=== PATIENT | female | born 1980 | race Hispanic/Latino ===

== ENCOUNTER 2017-01-05 10:19 | Emergency (ER) ==
[2017-01-05 10:28] VITALS: BP 118/75
[2017-01-05 10:39] LABS: URINE CULTURE PL NEEDED? NO; URINE SOURCE CLEAN CATCH
[2017-01-05 10:49] LABS: MANUAL DIFF NEEDED? NO
[2017-01-05 10:50] LABS: BASO% 0.1 % (0.0-0.8); EOS# 0.09 X1000 (0.0-0.7); EOS% 0.8 % (0.0-10.0); HEMATOCRIT 39.2 % (37.0-47.0); HEMOGLOBIN 13.3 g/dL (12.0-16.0); IMM GRAN# 0.02 X1000 (0.0-0.04); IMM GRAN% 0.2 % (0.0-0.5); LYMPH# 2.03 X1000 (1.2-3.4); LYMPH% 18.7 % (20.5-51.1); MCH 30.6 PG (27-31); MCHC 33.9 g/dL (33-37); MCV 90.3 FL (81-99); MONO# 0.72 X1000 (0.11-0.59); MONO% 6.6 % (1.7-9.3); MPV 9.9 FL (7.4-10.4); NEUT% 73.6 % (42.2-75.2); PLT 295 X1000 (130-400); RBC 4.34 XMIL (4.2-5.4)
[2017-01-05 10:52] LABS: BILIRUBIN URINE NEGATIVE (NEGATIVE); BLOOD URINE NEGATIVE (NEGATIVE); CLARITY CLEAR (CLEAR); COLOR YELLOW; GLUCOSE URINE NEGATIVE (NEGATIVE); LEUKOCYTES URINE 1+ (NEGATIVE); NITRITE URINE NEGATIVE (NEGATIVE); PH URINE 6.5; PROTEIN URINE TRACE mg/dL (NEGATIVE); SP GRAVITY URINE 1.015; UROBILINOGEN URINE NORMAL
[2017-01-05 10:53] LABS: URINE EPITHELIAL CELLS >10 /HPF (<10); URINE WBC <10 /HPF (<10)
[2017-01-05 11:06] LABS: AGAP 12; ALKALINE PHOSPHATASE 89 U/L (32-104); AMYLASE 44 U/L (20-200); BUN 11 mg/dL (8-22); CALCIUM 8.9 mg/dL (8.8-10.2); CHLORIDE 106 mmol/L (98-107); COSMO 277; GOT 20 U/L (10-30); GPT 17 U/L (10-36); LIPASE 19 U/L (13-60); POTASSIUM 3.5 mmol/L (3.5-5.1); SODIUM 139 mmol/L (136-145); TCO2 21 mmol/L (25-35); TOTAL PROTEIN 6.9 g/dL (6.3-8.3)
--- NOTE | 2017-01-05 11:14 | PROVIDER DOCUMENTATION ---
HPI-Abdominal Pain/GI Problem - General Chief Complaint: Epigastric Pain Stated Complaint: BACK PAIN Time Seen by Provider: 01/05/17 10:30 Source: patient Allergies/Adverse Reactions: Patient Allergies Allergy/AdvReac Type Severity Reaction Status Date / Time No Known Allergies Allergy Verified 12/31/12 15:15 Home Medications: Home Medication List Medication Instructions Recorded Confirmed Last Taken Type No Home Medications 01/05/17 01/05/17 Unknown History - History of Present Illness-ABD Nature of Presenting Problems: pt is a 36 y/o F that presents to the ER with RUQ/epigastric pain that radiates to her back. She has n/v but no diarrhea or fever. Denies possible . Denies dysuria or hematuria. Abdominal Pain Onset Location: reports: RUQ, epigastric Pain Radiation: reports: back Quality of Pain: reports: aching Severity in ED: reports: moderate Onset/Duration: reports: gradual, this morning Timing: reports: still present, constant Activities at Onset: reports: none Exposure to sick contacts?: No Modifying Factors: worse with: palpation Associated Symptoms: reports: back/neck pain, nausea, vomiting. denies: chest pain, diarrhea, dizziness, fever/chills, genitourinary problems, headaches, heartburn, shortness of breath Similar Symptoms Previously?: No Recently seen or treated by another doctor?: No Review of Systems - Adult - REVIEW OF SYSTEMS - ADULT Constitutional: denies: chills, fever Eyes: reports: no symptoms reported Ears, Nose, Mouth & Throat: reports: no symptoms reported Cardiovascular: denies: chest pain, palpitations, syncope Respiratory: denies: cough, shortness of breath, wheezing Gastrointestinal: reports: abdominal pain, nausea, vomiting. denies: hematemesis, constipation, diarrhea, rectal bleeding Genitourinary: denies: dysuria, frequency, hematuria Musculoskeletal: reports: back pain. denies: joint pain, neck pain Integumentary: reports: no symptoms reported Neurological: reports: no symptoms reported Psychiatric: reports: no symptoms reported Endocrine: reports: no symptoms reported Hematologic/Lymphatic: reports: no symptoms reported Allergic/Immunologic: reports: no symptoms reported All Other Systems: Reviewed and Negative Past History - Adult - PAST MEDICAL HISTORY-ADULT Review of Records: reports: Old Records Reviewed, Nursing Assessment Review, Medications Reviewed - PRIOR SURGERIES/PROCEDURES Surgical/Procedure History: reports: - IMMUNIZATION STATUS Childhood Immunizations: See Nurse Assessment Flu Vaccine: See Nurse Assessment - FAMILY HISTORY Family History: reviewed, not pertinent - SOCIAL HISTORY Smoking: non-smoker Living Situation: family Physical Exam-General - PHYSICAL EXAM-ADULT Initial Vital Signs Reviewed: Yes - CONSTITUTIONAL General Appearance: alert, no apparent distress - EYES Eyes: PERRL/EOMI, pink conjunctivae - HEAD, EARS, NOSE, MOUTH & THROAT HENMT: normocephalic/atraumatic, moist mucous membranes, normal ENT inspection - NECK Neck: non-tender, full range of motion, normal inspection - RESPIRATORY Respiratory: lungs clear, normal breath sounds, no respiratory distress, no accessory muscle use - CARDIOVASCULAR Cardiovascular: regular rate, rhythm, no edema, no murmur - GASTROINTESTINAL (ABDOMEN) Abdominal Exam: normal bowel sounds, soft, no organomegaly, no pulsatile mass, tenderness (RUQ,EPigastric). negative: hepatomegaly, spleenomegaly, Seay's sign - MUSCULOSKELETAL Back Exam: normal inspection, no vertebral tenderness Extremity: normal range of motion, normal inspection, no pedal edema - SKIN Integumentary: normal color, warm/dry - NEUROLOGIC Neurologic: grossly normal, no motor/sensory deficits - PSYCHIATRIC Psych/Mental Status: normal mood/affect, normal thought content, normal thought process, oriented x 3 Progress - PLAN OF CARE/RESULTS Progress/Plan/Lab Results: plan of care-labs, u/s RUQ Vital Signs Temp Pulse Resp BP Pulse Ox 01/05/17 10:23 98 F 75 18 118/75 99 No Known Allergies Allergy (Verified 12/31/12 15:15) No Home Medications 01/05/17 Laboratory 01/05/17 01/05/17 01/05/17 10:44 10:44 10:38 WBC 10.83 H RBC 4.34 Hgb 13.3 Hct 39.2 MCV 90.3 MCH 30.6 MCHC 33.9 RDW Std Deviation 12.6 Plt Count 295 MPV 9.9 Immature Gran % (Auto) 0.2 Neut % (Auto) 73.6 Lymph % (Auto) 18.7 L [place] % (Auto) 6.6 Eos % (Auto) 0.8 Baso % (Auto) 0.1 Immature Gran # (Auto) 0.02 Neut # (Auto) 7.96 H Lymph # (Auto) 2.03 [place] # (Auto) 0.72 H Eos # (Auto) 0.09 Baso # (Auto) 0.01 Sodium 139 Potassium 3.5 Chloride 106 Carbon Dioxide 21 L Anion Gap 12 BUN 11 Creatinine 0.5 Estimated GFR/1.73 m2 > 60 BUN/Creatinine Ratio 22 Glucose 97 Calculated Osmolality 277 Calcium 8.9 Total Bilirubin 0.60 AST 20 ALT 17 Alkaline Phosphatase 89 Total Protein 6.9 Albumin 4.0 Globulin 3.0 Albumin/Globulin Ratio 1.0 Amylase 44 Lipase 19 Urine Source CLEAN CATCH Urine Color YELLOW Urine Clarity CLEAR Urine pH 6.5 Ur Specific [place] 1.015 Urine Protein TRACE A Urine Ketones TRACE Urine Blood NEGATIVE Urine Nitrite NEGATIVE Urine Bilirubin NEGATIVE Urine Urobilinogen NORMAL Urine Microscopic RBC Not Reportable Urine WBC 1+ A Urine Microscopic WBC <10 Ur Epithelial Cells >10 A Urine Glucose NEGATIVE Urine Test 01/05/17 10:38 WBC RBC Hgb Hct MCV MCH MCHC RDW Std Deviation Plt Count MPV Immature Gran % (Auto) Neut % (Auto) Lymph % (Auto) [place] % (Auto) Eos % (Auto) Baso % (Auto) Immature Gran # (Auto) Neut # (Auto) Lymph # (Auto) [place] # (Auto) Eos # (Auto) Baso # (Auto) Sodium Potassium Chloride Carbon Dioxide Anion Gap BUN Creatinine Estimated GFR/1.73 m2 BUN/Creatinine Ratio Glucose Calculated Osmolality Calcium Total Bilirubin AST ALT Alkaline Phosphatase Total Protein Albumin Globulin Albumin/Globulin Ratio Amylase Lipase Urine Source Urine Color Urine Clarity Urine pH Ur Specific [place] Urine Protein Urine Ketones Urine Blood Urine Nitrite Urine Bilirubin Urine Urobilinogen Urine Microscopic RBC Urine WBC Urine Microscopic WBC Ur Epithelial Cells Urine Glucose Urine Test NEGATIVE Orders Category Date Time Status US GB < RUQ (LIMITED) [US] Stat Exams 01/05/17 11:15 Taken AMYLASE [CHEM] Stat Lab 01/05/17 10:44 Completed CBC WITH DIFF [HEME] Stat Lab 01/05/17 10:44 Completed COMPREHENSIVE METABOLIC PANEL [CHEM] Stat Lab 01/05/17 10:44 Completed LIPASE [CHEM] Stat Lab 01/05/17 10:44 Completed TEST-URINE [PREG] Stat Lab 01/05/17 10:[address] W/POSS RFLX CULT [URINALYSIS] Stat Lab 01/05/17 10:38 Completed - ULTRASOUND (By Radiology) 1 US Study: Gallbladder Impression: Abnormal US Results: multiple small gallstones, slight thickened gallbladder wall, nml CBD - CONSULTS/PCP/HOSPITALIST Notification #1 *Consult/PCP/Hospitalist*: Time Discussed: 12:45 Reason/Comments: Cholelithasis Consult Disposition: F/U in office Departure - Departure Time of Disposition Order: 12:46 DIAGNOSIS: Cholelithiases Qualifiers: Cholelithiasis location: gallbladder Cholecystitis presence: without cholecystitis Biliary obstruction: without biliary obstruction Qualified Code(s) : K80.20 - Calculus of gallbladder without cholecystitis without obstruction Disposition: HOME 01 Certified Medical Emergency: Emergent Condition: Stable Additional Instructions: no hot spicy greasy fried or grilled food f/u with ED Follow Up Instructions: You have been treated by a care provider in the Emergency Department. These instructions are being provided to you so you can have an understanding of how to care for yourself upon discharge. Upon discharge from the Emergency Department, you are responsible for making arrangements for follow-up care by a physician of your choice. Take all prescribed medications as directed. Return to the Emergency Department immediately for any new or worsening symptoms. You may call the Physician Referral phone number at [phone] to obtain a list of Physicians who are taking new patients. Referrals: None,PCP [Primary Care Provider] - Yousuf Mancilla MD [STAFF PHYSICIAN] - Instructions: Cholelithiasis, Fat and Cholesterol Restricted Diet, Low-Fat Diet for Pancreatitis or Gallbladder Conditions Attestation - Scribe Verification/Attestation Scribe:: Bird Lira Acting as Scribe for:: Miguel Mcwilliams Scribe documention review:: This chart was documented by a scribe and accurately reflects the service the provider performed and the decisions made by the provider. Physician Attestation - Physician Attestation I, the provider, attest to the following statement:: Miguel Mcwilliams Physician documentation Attestation:: This documentation recorded by the scribe accurately reflects the service I personally performed and the decisions made by me.
--- NOTE | 2017-01-05 12:35 | Diag Imaging Result Document ---
PROCEDURE NAME: US GB < RUQ (LIMITED) - 01/05/2017 ULTRASOUND GALLBLADDER: FINDINGS: There are multiple small gallstones in the gallbladder. The gallbladder munoz appear slightly thickened. There is no pericholecystic fluid seen. The technologist reports positive sonographic Seay's sign. The common bile duct is normal caliber at 3 mm. There are no abnormalities of the liver, right kidney, or visualized portions of the pancreas identified. IMPRESSION: Multiple small gallstones in gallbladder. Slightly thickened gallbladder munoz. Normal caliber common bile duct at 3 mm.
== END 2017-01-05 13:16 | disposition home or self-care (01) ==
LOC: P.ED 10:19
DX: K80.20 Calculus of gallbladder without cholecystitis without obstruction (principal); R10.11 Right upper quadrant pain; R10.13 Epigastric pain; R11.2 Nausea with vomiting, unspecified; M54.9 Dorsalgia, unspecified
CPT/HCPCS: 36415; 76705; 80053; 81001; 81025; 82150; 83690; 85025